=== PATIENT | male | born 1955 | race Caucasian/White ===

== ENCOUNTER 2025-04-07 16:27 | Emergency (ER) | payer MEDICARE, OTHER ==
[~2025-04-07] VITALS: Ht 170.2 cm; Wt 63.5 kg
[2025-04-07] MEDS ORDERED: MULT-213 PO (18:10)
[2025-04-07] MEDS ORDERED: ASCO500T20 PO (18:10)
[2025-04-07] MEDS ORDERED: SENN-18 PO (18:10)
[2025-04-07] MEDS ORDERED: FERR325T30 PO (18:10)
[2025-04-07] MEDS ORDERED: BISA10SU61 RC (18:10)
[2025-04-07] MEDS ORDERED: NA P133E RC (18:10)
[2025-04-07] MEDS ORDERED: DOCU100C36 PO (18:10)
[2025-04-07] MEDS ORDERED: PANT40TA49 PO (18:10)
[2025-04-07] MEDS ORDERED: MAGN400O6 PO (18:10)
[2025-04-07] MEDS ORDERED: FOLI0.4T6 PO (18:10)
[2025-04-07] MEDS ORDERED: OLAN5TAB3 PO (18:10)
[2025-04-07] MEDS ORDERED: ACET325T53 PO (18:10)
[2025-04-07 18:11] LABS: PLATELET COUNT (AUTO) 431 K/uL (150-450); RED BLOOD CELL COUNT(AUTO) 4.96 MIL/uL (4.5-6.0); RED CELL DISTRIBUTION WIDTH 21.7 % (11.5-15.0); WHITE BLOOD COUNT (AUTO) 7.4 K/uL (4.3-11.0)
[2025-04-07 18:16] LABS: CALCIUM, SERUM 8.5 mg/dL (8.5-10.1); CREATININE 0.6 mg/dL (0.6-1.3); SODIUM SERUM 138 mmol/L (136-145); UREA NITROGEN, BLOOD 18 mg/dL (7-18)
[2025-04-07 18:23] LABS: ALCOHOL, BLOOD < 3 mg/dL (0-10); ASPARTATE AMINOTRANSFERASE 27 U/L (15-37); TOTAL PROTEIN, SERUM 7.5 g/dL (6.4-8.2)
[2025-04-07] MEDS ORDERED: ASCORBIC ACID 500 MG TABLET PO SCH (20:30)
[2025-04-07] MEDS ORDERED: PANTOPRAZOLE 40 MG TABLET.DR PO SCH (20:30)
[2025-04-07 22:59] VITALS: BP 137/82; TEMP 98; O2SAT 97
[2025-04-08] MEDS ORDERED: FOLIC ACID 1 MG TABLET PO SCH (09:00)
[2025-04-08] MEDS ORDERED: DOCUSATE SODIUM 100 MG CAPSULE PO SCH (09:00)
[2025-04-08] MEDS ORDERED: FERROUS SULFATE (325 MG) 325 MG/TAB TABLET PO SCH (09:00)
[2025-04-08] MEDS ORDERED: SENNOSIDES 8.6 MG TABLET PO SCH (09:00)
[2025-04-08] MEDS ORDERED: MULTIVIT W/MINERALS 1 TAB TABLET PO SCH (09:00)
== END 2025-04-07 23:00 | disposition short-term general hospital (02) ==
LOC: ER 16:45
DX: F03.911 Unspecified dementia, unspecified severity, with agitation (principal); D50.9 Iron deficiency anemia, unspecified; E63.9 Nutritional deficiency, unspecified; F20.9 Schizophrenia, unspecified; Z79.899 Other long term (current) drug therapy; Z02.89 Encounter for other administrative examinations; Z20.822 Contact with and (suspected) exposure to COVID-19
CPT/HCPCS: 36415; 80048-TC; 80076-TC; 85025-TC; G0480